=== PATIENT | male | born 1965 | race Caucasian/White ===

== ENCOUNTER 2017-01-13 02:50 | Inpatient (IN) | payer MEDICAID ==
[~2017-01-13] VITALS: Ht 193 cm; Wt 94.9 kg
[~2017-01-13 02:50] MED LIST: ARIP2TAB PO; BENZ2AMP4 PO; GABA100C8 PO; LANS15CA45 PO; OMEP-110 PO; OMEP40CA6 PO; Pantoprazole Sodium PO; SUCR1ORA2 PO
[2017-01-13] MEDS ORDERED: SODIUM CHLORIDE 0.9% 1,000 ML IV ONE (03:09)
[2017-01-13] MEDS ORDERED: PANTOPRAZOLE 80 MG in SODIUM CHLORIDE 0.9% 50 ML IVPB ONE (03:15)
[2017-01-13] MEDS ORDERED: PANTOPRAZOLE 80 MG in SODIUM CHLORIDE 0.9% 100 ML IV SCH (03:15)
[2017-01-13] MEDS ORDERED: SODIUM CHLORIDE 0.9% 1,000ML IVBOLUS ONE (03:30)
[2017-01-13] MEDS ORDERED: SODIUM CHLORIDE FLUSH 10ML SYR IVF ONE (03:30)
[2017-01-13 03:41] LABS: ASPARTATE AMINO TRANSFERASE 18 U/L (15-37); BLOOD UREA NITROGEN 18 mg/dL (7-18)
[2017-01-13 05:33] VITALS: BP 116/75
[2017-01-13 05:48] VITALS: BP 116/75
[2017-01-13] MEDS ORDERED: NS + 20MEQ KCL 1,000 ML IV SCH (06:04)
[2017-01-13] MEDS ORDERED: LORazepam 1MG TABLET PO PRN (06:30)
[2017-01-13] MEDS ORDERED: ONDANSETRON ODT 4 MG PO PRN (06:30)
[2017-01-13] MEDS ORDERED: LABETALOL 5MG/ML, 20ML IV PRN (06:30)
[2017-01-13] MEDS ORDERED: SODIUM CHLORIDE 0.9% 1,000 ML IV SCH (06:30)
[2017-01-13] MEDS ORDERED: POLYETHYLENE GLYCOL 17 GM PACKET PO PRN (06:30)
[2017-01-13] MEDS ORDERED: BISACODYL 10 MG SUPP PR PRN (06:30)
[2017-01-13] MEDS ORDERED: NICOTINE 14MG/24 HR PATCH.TD24 TD SCH (06:30)
[2017-01-13] MEDS ORDERED: DOCUSATE 100 MG CAPSULE PO PRN (06:30)
[2017-01-13] MEDS ORDERED: HEPARIN 5,000 UNITS/ML, 1ML SQ SCH (06:30)
[2017-01-13] MEDS ORDERED: PANTOPRAZOLE 40 MG IV IVPush SCH ×2 (06:30→18:30)
[2017-01-13] MEDS ORDERED: ACETAMINOPHEN 325 MG TABLET PO PRN (06:30)
[2017-01-13 07:45] VITALS: BP 104/68
[2017-01-13 08:30] LABS: BLOOD UREA NITROGEN 17 mg/dL (7-18)
[2017-01-13 08:45] LABS: HIV 1&2 ANTIBODY SCREEN Nonreactive (Nonreactive); HIV-1 p24 ANTIGEN Nonreactive (Nonreactive)
[2017-01-14 01:18] LABS: HEPATITIS C VIRUS ANTIBODY Nonreactive (Nonreactive)
== END 2017-01-13 12:35 | disposition left against medical advice (07) | DRG 377 ==
LOC: ED 03:03 → EDIP 04:43 → 3NE 05:29
PROVIDERS: ADMIT Internal Medicine; ATTEND Internal Medicine
DX: K25.4 Chronic or unspecified gastric ulcer with hemorrhage (principal); K85.90 Acute pancreatitis without necrosis or infection, unspecified; I10 Essential (primary) hypertension; Z87.11 Personal history of peptic ulcer disease; F41.9 Anxiety disorder, unspecified; Z88.5 Allergy status to narcotic agent; Z82.49 Family history of ischemic heart disease and other diseases of the circulatory system; Z72.0 Tobacco use; Z91.14 Patient's other noncompliance with medication regimen; D50.0 Iron deficiency anemia secondary to blood loss (chronic); E88.09 Other disorders of plasma-protein metabolism, not elsewhere classified; N28.9 Disorder of kidney and ureter, unspecified
CPT/HCPCS: 36415; 80048; 80053; 80061; 80074; 83690; 85014; 85018; 85025; 85610; 85730; 86703; 86850; 86900; 87899; 96365; 96375; C9113; G0435; J7030

== ENCOUNTER 2020-12-06 22:07 | Emergency (ER) | payer MEDICAID ==
[~2020-12-06] VITALS: Ht 188 cm; Wt 85.0 kg
[~2020-12-06 22:07] MED LIST changes: -ARIP2TAB PO; +ARIP2TAB2 PO; +GABA-826 PO; -GABA100C8 PO; -LANS15CA45 PO; +LANS15CA60 PO; +OMEP40CA42 PO; -OMEP40CA6 PO; -SUCR1ORA2 PO; +SUCR1ORA5 PO
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
[2020-12-06] MEDS ORDERED: DEXTROSE 50%, 50ML SYRINGE IVPush ONE (22:30)
[2020-12-06] MEDS ORDERED: MIDAZOLAM 1 MG/ML, 5ML IVPush ONE (22:30)
--- NOTE | 2020-12-06 22:30 | NUR ---
PT GIVEN SANDWICH AND JUICE PER REQUEST. PT SITTING UPRIGHT EATING AND STATES "I HAVENT EATEN MUCH RECENTLY, THANK YOU". NO ADDITIONAL NEEDS. WILL CONTINUE TO MONITOR.
[2020-12-06 22:49] LABS: BASOPHILS % (AUTO) 1 % (0-1); EOSINOPHILS % (AUTO) 0 % (1-7); LYMPHOCYTES % (AUTO) 8 % (22-44); MEAN CORPUSCULAR HEMOGLOBIN 28.4 pg (27.5-34.5); MEAN CORPUSCULAR HGB CONC 33.9 g/dL (33.2-36.2); MEAN PLATELET VOLUME 8.3 fL (7.4-10.4); MONOCYTES % (AUTO) 10 % (2-9); NEUTROPHILS % (AUTO) 81 % (42-75); PLATELET COUNT 287 x10^3/uL (130-400); RED BLOOD COUNT 4.39 x10^6/uL (4.38-5.82); RED CELL DISTRIBUTION WIDTH 14.9 % (9.4-14.8)
[2020-12-06 22:51] LABS: MD NO
[2020-12-06 22:54] LABS: ALANINE AMINOTRANSFERASE 24 U/L (12-78); ALBUMIN 3.5 g/dL (3.4-5.0); ANION GAP 11 mmol/L (5-15); CALCIUM 8.6 mg/dL (8.5-10.1); CHLORIDE 103 mmol/L (98-107)
[2020-12-06 22:55] LABS: SALICYLATE LEVEL < 1.7 mg/dL (2.8-20.0)
[2020-12-06 22:57] LABS: ALKALINE PHOSPHATASE 118 U/L (45-117); BILIRUBIN,TOTAL 1.4 mg/dL (0.2-1.0); CREATININE 1.05 mg/dL (0.7-1.3); TOTAL PROTEIN 7.7 g/dL (6.4-8.2)
--- NOTE | 2020-12-07 00:01 | NUR ---
PT SEMI UPRIGHT ON GURNEY RESTING COMFORTABLY WITH EYES CLOSED, NADN, VSS. NO NEEDS AT THIS TIME. CALL LIGHT AND BELONGINGS WITHIN REACH.
--- NOTE | 2020-12-07 04:08 | NUR ---
ERP AT BEDSIDE FOR REEVAL
--- NOTE | 2020-12-07 06:02 | NUR ---
PT SUPINE ON GURNEY RESTING COMFORTABLY WITH EYES CLOSED, NADN, VSS. PT DENIES ANY NEEDS AT THIS TIME, AWAITING TELE PSYCH. NO OTHER NEEDS AT THIS TIME. CALL LIGHT AND BELONGINGS WITHIN REACH
--- NOTE | 2020-12-07 06:51 | NUR ---
REPORT TO PEYTON TELLEZ
--- NOTE | 2020-12-07 06:52 | NUR ---
REPORT FROM ISAÍAS
--- NOTE | 2020-12-07 07:45 | NUR ---
SOC GIVEN REPORT, TO CALL PATIENT SOON. PT UPRIGHT IN [facility]. TELEPSYCH IN ROOM
--- NOTE | 2020-12-07 08:33 | NUR ---
TELEMEDICINE PSYCHIATRIST CALLED. SHE WAS UNABLE TO PROPERLY EVALUATE THE PATIENT AT THIS TIME DUE TO PATIENT DROWSINESS. SHE WOULD LIKE TO REEVALUATE WHEN PATIENT IS MORE ALERT.
--- NOTE | 2020-12-07 08:56 | NUR ---
PT GIVEN MEAL TRAY, AWAKE AND EATING
--- NOTE | 2020-12-07 09:27 | NUR ---
PT RESTING, WILL SEE SONU REES PRESENT
--- NOTE | 2020-12-07 10:33 | NUR ---
PT GIVEN WATER, SLEEPING, SITTER PRESENT
--- NOTE | 2020-12-07 11:30 | NUR ---
MEAL TRAY ORDERED. PT RESTING, SITTER PRESENT
[2020-12-07 14:00] VITALS: BP 115/76
--- NOTE | 2020-12-07 14:01 | NUR ---
BREAK RN: PT RESTING IN ROOM. SITTER AT DOOR. VS STABLE. WILL CONTINUE TO MONITOR WHLIE PRIMARY RN IS ON BREAK.
--- NOTE | 2020-12-07 14:19 | NUR ---
BREAK RN: REPORT GIVEN TO ROSALINDA TODD
[2020-12-07] MEDS ORDERED: ARIPIPRAZOLE 10 MG TABLET ONE (14:47)
--- NOTE | 2020-12-07 14:54 | NUR ---
MEDICATED PER ORDERS. WILL WATCH FOR SIDE EFFECTS, RE-EVAL
[2020-12-07] MEDS ORDERED: ARIPIPRAZOLE 10 MG TABLET PO ONE (15:00)
[2020-12-07] MEDS ORDERED: ARIPIPRAZOLE 400 MG INJ NC IM ONE (17:00)
--- NOTE | 2020-12-07 17:00 | NUR ---
MEDICATED PER ORDERS. READY FOR DC
--- NOTE | 2020-12-07 18:00 | NUR ---
Patient given discharge instructions. Pt threw papers away and walked away to use phone. steady gait. all belongings with patient
== END 2020-12-07 18:02 ==
LOC: ED 23:47
DX: F23 Brief psychotic disorder (principal); R51.9 Headache, unspecified; R41.82 Altered mental status, unspecified; I10 Essential (primary) hypertension; Z72.9 Problem related to lifestyle, unspecified
CPT/HCPCS: 36415; 70450; 80053; 80143; 80179; 80320; 82962; 85025; 96372; 99285; G0480

== ENCOUNTER 2021-04-25 15:10 | Emergency (ER) | payer MEDICAID ==
[~2021-04-25] VITALS: Ht 193 cm; Wt 92.0 kg
[~2021-04-25 15:10] MED LIST changes: +LANS15CA53 PO; -LANS15CA60 PO; -OMEP40CA42 PO; +OMEP40CA8 PO
--- NOTE | 2021-04-25 15:28 | NUR ---
BIB EMS WITH CHIEF C/O ABD AND CHEST PAIN X2 WEEKS. PATIENT HAS HX OF BLEEDING ULCERS AND WAS ON OMPERAZOLE. HE RAN OUR OF OMEPRAZOLE AND OVER THE LAST TWO WEEKS HAS BEEN INGESTING 2 BOXES OF BAKING SODA PER DAY TO RELIEVE THE PAIN. PATIENT ALSO REPORTS "GAS BUILD-UP." NO INTERVENTIONS EN ROUTE, EKG NORMAL. PATIENT CONNECTED TO MONITOR, VSS, PATIENT REPORTS 10/10 ABD PAIN, WORSE THAN CHEST PAIN, CALL LIGHT WITHIN REACH.
[2021-04-25] MEDS ORDERED: MORPHINE SULFATE 4 MG/ML, 1ML ONE (17:42)
[2021-04-25] MEDS ORDERED: ONDANSETRON 2MG/ML, 2ML ONE (17:42)
[2021-04-25 17:48] VITALS: BP 168/105
--- NOTE | 2021-04-25 17:48 | NUR ---
LATE ENTRY DUE TO PATIENT CARE: PATIENT MEDICATED PER eMAR, LAYING IN GURNEY WITH EYES CLOSED, TALKING TO SELF, NADN, CONNECTED TO MONITOR, VSS, CALL LIGHT WITHIN REACH.
[2021-04-25 17:53] LABS: BASOPHILS % (AUTO) 0 % (0-1); EOSINOPHILS % (AUTO) 9 % (1-7); LYMPHOCYTES % (AUTO) 11 % (22-44); MEAN CORPUSCULAR HEMOGLOBIN 27.3 pg (27.5-34.5); MEAN CORPUSCULAR HGB CONC 33.4 g/dL (33.2-36.2); MEAN PLATELET VOLUME 7.8 fL (7.4-10.4); MONOCYTES % (AUTO) 8 % (2-9); NEUTROPHILS % (AUTO) 72 % (42-75); PLATELET COUNT 240 x10^3/uL (130-400); RED BLOOD COUNT 4.38 x10^6/uL (4.38-5.82); RED CELL DISTRIBUTION WIDTH 15.7 % (9.4-14.8)
[2021-04-25] MEDS ORDERED: ONDANSETRON 2MG/ML, 2ML IVPush ONE (18:00)
[2021-04-25] MEDS ORDERED: MORPHINE SULFATE 4 MG/ML, 1ML IVPush PRN (18:00)
[2021-04-25] MEDS ORDERED: SODIUM CHLORIDE 0.9% 1,000ML IVBOLUS ONE (18:00)
[2021-04-25 18:07] LABS: ALANINE AMINOTRANSFERASE 27 U/L (12-78); ALBUMIN 2.7 g/dL (3.4-5.0); ANION GAP 0 mmol/L (5-15); CALCIUM 8.5 mg/dL (8.5-10.1); CHLORIDE 107 mmol/L (98-107)
[2021-04-25 18:10] LABS: ALKALINE PHOSPHATASE 100 U/L (45-117); BILIRUBIN,TOTAL 0.8 mg/dL (0.2-1.0); TOTAL PROTEIN 6.9 g/dL (6.4-8.2)
--- NOTE | 2021-04-25 18:18 | NUR ---
PATIENT TO IMAGING.
[2021-04-25] MEDS ORDERED: OMNIPAQUE 350 MG/ML, 100ML BOTTLE ONE (18:34)
[2021-04-25 19:04] LABS: MICROSCOPIC AUTO
[2021-04-25] MEDS ORDERED: MAALOX/HYOSCYAMINE/LIDOCAINE 45 ML BTL PO ONE (19:30)
[2021-04-25] MEDS ORDERED: PANTOPRAZOLE 40 MG IV IVPush ONE (19:30)
[2021-04-25] MEDS ORDERED: MAALOX/HYOSCYAMINE/LIDOCAINE 45 ML BTL ONE (19:32)
[2021-04-25] MEDS ORDERED: PANTOPRAZOLE 40 MG IV ONE (19:32)
--- NOTE | 2021-04-25 19:54 | NUR ---
MEDS GIVEN, PT RESTING, NO ACUTE DISTRESS.
--- NOTE | 2021-04-25 20:37 | NUR ---
MD YANG LEAVITT PT.
--- NOTE | 2021-04-25 21:20 | NUR ---
F/U AND D/C INSTRUCTIONS WITH PRESCRIPTIONS GIVEN TO PT WITH A CAB VOUCHER, AND HE V/U. PT PROVIDED WITH A SANDWICH AND CHIPS, AND IS READY FOR D/C. PT AMBULATED TO DISCHARGE DESK.
== END 2021-04-25 21:22 | disposition home or self-care (01) ==
LOC: ED 15:30
DX: K21.00 Gastro-esophageal reflux disease with esophagitis, without bleeding (principal); I11.9 Hypertensive heart disease without heart failure
CPT/HCPCS: 36415; 74177; 80053; 81001; 83690; 85025; 96361; 96374; 96375; 99285; C9113; J2270; J2405; J7030; Q9967

== ENCOUNTER 2021-05-13 11:26 | Emergency (ER) | payer MEDICAID ==
[~2021-05-13] VITALS: Ht 193 cm; Wt 90.0 kg
[2021-05-13 13:15] LABS: BASOPHILS % (AUTO) 1 % (0-1); EOSINOPHILS % (AUTO) 1 % (1-7); LYMPHOCYTES % (AUTO) 9 % (22-44); MEAN CORPUSCULAR HEMOGLOBIN 27.2 pg (27.5-34.5); MEAN CORPUSCULAR HGB CONC 33.9 g/dL (33.2-36.2); MONOCYTES % (AUTO) 7 % (2-9); NEUTROPHILS % (AUTO) 82 % (42-75); PLATELET COUNT 206 x10^3/uL (130-400); RED CELL DISTRIBUTION WIDTH 15.6 % (9.4-14.8)
[2021-05-13 13:27] LABS: ALANINE AMINOTRANSFERASE 29 U/L (12-78); ANION GAP 7 mmol/L (5-15); CALCIUM 8.4 mg/dL (8.5-10.1); CHLORIDE 99 mmol/L (98-107)
--- NOTE | 2021-05-13 13:30 | NUR ---
PT CAME TO TRIAGE ASKING FOR A PEPCID. PT EDUCATED ON HE COULDNT BE MEDICATED AT THIS TIME. PT RESPONDED WITH "FUCK YOU"
[2021-05-13 13:32] LABS: ALKALINE PHOSPHATASE 107 U/L (45-117); BILIRUBIN,TOTAL 0.8 mg/dL (0.2-1.0); CREATININE 0.88 mg/dL (0.7-1.3); TOTAL PROTEIN 8.1 g/dL (6.4-8.2); TROPONIN I < 0.015 ng/mL (0.000-0.045)
--- NOTE | 2021-05-13 15:13 | NUR ---
INSPECTOR OF WEIGHTS AND MEASURES: PT TO ROOM FROM LOBBY
--- NOTE | 2021-05-13 15:30 | NUR ---
Pt said I better give him many fucking blankets since I was making him change into a gown. Pt walked to room 5, in NAD. Says he wants pain medication he is in pain all over.
[2021-05-13 15:34] VITALS: BP 123/88
--- NOTE | 2021-05-13 16:27 | NUR ---
Pt told me to fuck off and pushed my hand out of the way, told me to get the fuck out of the room and slammed the door. Security called, will hand pt dc papers on way out. Dr suarez also informed.
--- NOTE | 2021-05-13 16:30 | NUR ---
ROUGHING MILL OPERATOR: SECURITY CALLED
--- NOTE | 2021-05-13 16:33 | NUR ---
Pt given rx and dc papers, while walking out with security.
== END 2021-05-13 16:34 | disposition home or self-care (01) ==
LOC: ED 11:31
DX: R07.89 Other chest pain (principal); R21 Rash and other nonspecific skin eruption; R45.6 Violent behavior; I10 Essential (primary) hypertension
CPT/HCPCS: 36415; 71045; 80053; 83690; 84484; 85025; 93005; 99285; J7512